=== PATIENT | male | born 1975 | race African-American/Black ===

== ENCOUNTER 2017-02-01 05:09 | Emergency (ER) | payer BC, OTHER ==
[2017-02-01] MEDS ORDERED: ONDANSETRON HCL/PF 2 MG/ML VIAL IV ONE (05:29)
[2017-02-01] MEDS ORDERED: NORMAL SALINE 1,000 ML IV ONE (05:29)
[2017-02-01] MEDS ORDERED: ONDANSETRON HCL/PF 2 MG/ML VIAL ONE (05:31)
--- NOTE | 2017-02-01 05:33 | ERNOTE ---
<FortunatolindaJeremi - Last Filed: 02/01/17 07:58> Medical Problem HPI - General Chief Complaint: Flu Symptoms Time Seen by Provider: 02/01/17 05:23 Source: patient Exam Limitations: no limitations - Immun/Allergies/Home Medications Immunizations: IMMUNIZATION HX Immunizations Up to Date No History of Influenza Vaccine No Hx Pneumococcal Vaccination No Allergies/Adverse Reactions: Allergies No Known Allergies Allergy (Verified 02/01/17 06:01) Home Medications: HOME MEDICATIONS Azithromycin [Zithromax] 250 mg PO DAILY #6 tablet 02/01/17 [Last Taken Unknown] Benzonatate [Tessalon Perle] 100 mg PO TID #20 capsule 02/01/17 [Last Taken Unknown] - History of Present History Narrative: Pt had N/V onset 3 days ago and has progressed to upper respiratory congestion and a slight cough. Timing: getting worse Severity: moderate Modifying Factors - (Improves): Present: rest Modifying Factors - (Worsens): Present: eating Review of Systems - Review of Systems Constitutional: Present: fever, chills, diaphoresis EYE: Present: no symptoms reported ENT: Present: nose congestion, nasal drainage Respiratory: Present: cough - minimal Cardiology: Present: no symptoms reported Gastrointestinal/Abdominal: Present: nausea, vomiting, abdominal pain Genitourinary: Present: no symptoms reported Musculoskeletal: Present: no symptoms reported Skin: Present: no symptoms reported Neurological: Present: weakness Endocrine: Present: no symptoms reported Hematologic/Lymphatic: Present: no symptoms reported Psych: Present: no symptoms reported - Patient's Past Medical History Patient History - Medical: No pertinent hx Patient History - Cardiac/Respiratory: No pertinent hx Patient History - Surgical Procedures: Other Patient History - Other: None - Social History Living Situations: significant other Abuse History: No History of abuse Psych History: No pertinent hx Smoking Status: Heavy tobacco smoker Have you smoked in the past 12 months: Yes Do you dip or chew tobacco: No Patient requests Smoking Cessation Consult: No Initiate information on Smoking Cessation: No Alcohol Use: none Drug Use: none - Immunizations Immunizations Up to Date: No Hx Pneumococcal Vaccination: No History of Influenza Vaccine: No Physical Exam - Physical Exam General Appearance: Present: wd/wn, alert, no apparent distress Head Exam: Present: normal inspection, no evidence of injury Ears, Nose, Throat: Present: nasal congestion Neck: Present: normal inspection, nontender Respiratory: Present: no respiratory distress, normal breath sounds, no accessory muscle use, lungs clear Cardiovascular/Chest: Present: regular rate, rhythm, no murmur, normal peripheral pulses Gastrointestinal/Abdominal: Present: normal bowel sounds, tenderness - diffuse, abnormal bowel sounds - hyperactive Back Exam: Present: normal inspection, no vertebral tenderness Extremity Exam: Present: normal inspection, normal range of motion Neurological Exam: Present: alert, oriented, normal mood/affect Skin Exam: Present: normal color, warm/dry Lymphatic Exam: Present: no adenopathy ED Progress - Results and Orders Patient's Lab Results:: I have reviewed the patient's lab results. Results and Orders: Laboratory Tests 02/01/17 02/01/17 05:40 05:40 WBC 11.0 H Hgb 18.9 H Hct 53.4 H Plt Count 279 Sodium 138 Potassium 3.0 L Chloride 101 Carbon Dioxide 28.9 BUN 5 L Creatinine 0.91 Random Glucose 92 Calcium 9.0 Total Bilirubin 0.9 AST 23 ALT 46 Alkaline Phosphatase 112 Total Protein 8.0 Albumin 3.9 Amylase 68 Lipase 78 - Vital Signs Patient's Vital Signs:: I have reviewed the patient's vital signs. Vital Signs: Vital Signs 02/01/17 05:14 Temperature 36.8 C Pulse Rate 110 H Respiratory 16 Rate Blood Pressure 162/110 O2 Sat by Pulse 99 Oximetry - X-Ray X-Ray #1 X-Ray: abdomen Interpretation: Interp. by me X-ray Comments: mildly dilated loops of small bowel mid abdomen, appears to stop LUQ X-Ray #2 X-Ray: chest Interpretation: Interp. by me X-ray Comments: no infiltrate or effusion - Progress/Reassessment Chief Complaint: Flu Symptoms Progress:: Improved Progress Note-Subjective: 02/01/17 06:40 discussed lab and x-ray results with patient. Recommended CT, pt expressed agreement. - Transfer of Care Physician Sign Out: Jeremi Lockhart Receiving Physician: Lincoln Fernandes Pending Results: CT/MRI results Expected Disposition: Discharge Departure Clinical Impression: Abdominal pain Qualifiers: Abdominal location: left upper quadrant Qualified Code(s): R10.12 - Left upper quadrant pain Diverticulosis Qualifiers: Diverticulosis site: diverticulosis of large intestine Diverticulosis bleeding : diverticulosis without bleeding Qualified Code(s): K57.30 - Diverticulosis of large intestine without perforation or abscess without bleeding Upper respiratory infection Qualifiers: URI type: unspecified URI Qualified Code(s): J06.9 - Acute upper respiratory infection, unspecified - Departure Disposition: Home self-care Condition: Good Instructions: Diverticulosis, Upper Respiratory Infection, Adult, [id number] Prescriptions: Azithromycin [Zithromax] 250 mg PO DAILY #6 tablet Benzonatate [Tessalon Perle] 100 mg PO TID #20 capsule <Lincoln Fernandes - Last Filed: 02/01/17 09:46> Medical Problem HPI - Immun/Allergies/Home Medications Immunizations: IMMUNIZATION HX Immunizations Up to Date No History of Influenza Vaccine No Hx Pneumococcal Vaccination No ED Progress - Vital Signs Vital Signs: Vital Signs 02/01/17 02/01/17 02/01/17 05:14 06:31 06:52 Temperature 36.8 C 36.4 C L Pulse Rate 110 H 96 90 Respiratory 16 16 14 Rate Blood Pressure 162/110 158/97 155/110 O2 Sat by Pulse 99 99 97 Oximetry 02/01/17 02/01/17 07:52 08:51 Temperature Pulse Rate 88 100 Respiratory 14 12 Rate Blood Pressure 154/108 149/103 O2 Sat by Pulse 97 96 Oximetry - X-Ray X-Ray #2 X-ray Comments: CT the abdomen and pelvis was reviewed by me Plan - Plan Plan: Given that the patient has a fairly significant cough as well as diverticulosis I will start the patient on antibiotics and cough medicine and he will follow- up with his family physician as needed.
[2017-02-01 05:48] LABS: Hematocrit 53.4 % (42.0-52.0); Hemoglobin 18.9 gm/dL (13.5-18.0); Mean Cell Volume 87.8 fl (78-100); Mean Corpuscular Hemoglobin 31.1 pg (27-31); Mean Corpuscular Hgb Conc 35.4 g/dl (32-36); Neutrophil # 6.8 K/mm3 (1.3-6.0); Platelet Count 279 K/mm3 (150-450); Red Blood Count 6.08 M/mm3 (4.7-6.0); Red Cell Distribution Width 14.6 % (11.5-14.0)
[2017-02-01 06:00] LABS: Albumin * 3.9 gm/dl (3.4-5.0); Anion Gap 11.1 mmol/L (6.8-13.8); BUN/Creatinine Ratio 5.5 (9.0-21.6); Bilirubin, Total 0.9 mg/dL (0.0-1.1); Ca. Corrected For Albumin 8.8 mg/dL (8.4-10.2); Carbon Dioxide 28.9 mmol/L (24-32.6)
[2017-02-01] MEDS ORDERED: DIATRIZOATE MEGLUMINE, SODIUM 30 ML BTL ONE (06:42)
[2017-02-01] MEDS ORDERED: DIATRIZOATE MEGLUMINE, SODIUM 30 ML BTL PO ONE (06:43)
[2017-02-01 09:40] VITALS: BP 137/101
== END 2017-02-01 09:54 | disposition home or self-care (01) ==
LOC: ER 05:09
DX: J06.9 Acute upper respiratory infection, unspecified (principal); K57.30 Diverticulosis of large intestine without perforation or abscess without bleeding; R10.12 Left upper quadrant pain; F17.200 Nicotine dependence, unspecified, uncomplicated
CPT/HCPCS: 36415; 71020; 74020; 74177; 80053; 82150; 83690; 85025; 87400; 96374; 99284; J2405

== ENCOUNTER 2019-08-23 16:21 | Observation (INO) ==
[2019-08-23] MEDS ORDERED: ONDANSETRON HCL/PF 2 MG/ML VIAL IV ONE (16:35)
--- NOTE | 2019-08-23 16:43 | ERNOTE ---
Medical Problem HPI - Narrative Date of Service: 08/23/19 - General Chief Complaint: Nausea/Vomiting Time Seen by Provider: 08/23/19 16:30 Source: patient Exam Limitations: no limitations - Immun/Allergies/Home Medications Immunizations: IMMUNIZATION HX Immunizations Up to Date No History of Influenza Vaccine Yes Hx Pneumococcal Vaccination No Allergies/Adverse Reactions: Allergies No Known Allergies Allergy (Verified 05/05/19 12:43) Home Medications: HOME MEDICATIONS Cyclobenzaprine HCl [Flexeril] 10 mg PO TID PRN 05/05/19 [Last Taken Unknown] Gabapentin [Neurontin] 300 mg PO TID 05/05/19 [Last Taken Unknown] Gabapentin [Neurontin] 600 mg PO TID 05/05/19 [Last Taken Unknown] Losartan Potassium 20 mg PO DAILY 05/05/19 [Last Taken Unknown] Zolpidem Tartrate [Ambien] 5 mg PO HS 05/05/19 [Last Taken Unknown] oxyCODONE HCL/ACETAMINOPHEN [Percocet 5 MG/325 MG] 1 tab PO Q4H PRN 05/05/19 [Last Taken Unknown] - Pain Score Pain Score #1 Pain Score: 7 - History of Present History Narrative: The patient is a 44 year old male who presents for nausea and vomiting which has been present since this am. There are associated symptoms of generalized body aches, shortness of breath, intermittent chest pain and diarrhea. The patient reports generalized body aches, 7/10. There are no alleviating factors. There are aggravating factors of activity and oral intake. Previous treatments have included: none. The past medical history includes: HTN. The social history is positive for current tobacco use. The patient has had no known ill contacts. Patient states that he has been working in the heat for the past several days. Patient states he ate dinner last evening and then began to develop nausea and general feeling unwell. Patient states he awoke today still feeling unwell with nausea, attempted to eat and consume water and then began vomiting. Patient states he has been vomiting all throughout the day unable to keep down fluids. Patient also developed diarrhea today and has bout of diffuse anterior chest pain with shortness of breath. Patient states he has had minimal urine output today. 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 Review of Systems - Review of Systems Constitutional: Present: diaphoresis, fatigue. Absent: fever, chills EYE: Present: no symptoms reported. Absent: vision changes ENT: Present: no symptoms reported. Absent: ear pain, nasal drainage, sore throat Respiratory: Present: shortness of breath. Absent: cough Cardiology: Present: chest pain Gastrointestinal/Abdominal: Present: nausea, vomiting, diarrhea, abdominal pain, eating less, drinking less Genitourinary: Present: decreased urinary output. Absent: dysuria Musculoskeletal: Present: other - generalized body aches Skin: Present: no symptoms reported. Absent: rash Neurological: Present: dizziness/light-headedness - near syncope, weakness All Other Systems: All systems neg except as marked Medical History (Last Reviewed 08/23/19 @ 16:37 by ERASMO Wilcox) History of high blood pressure Surgical History: Surgical History (Last Reviewed 08/23/19 @ 16:37 by ERASMO Wilcox) History of ankle surgery History of carpal tunnel surgery Hx of cholecystectomy Social History: (Last Reviewed 08/23/19 @ 16:37 by ERASMO Wilcox) Tobacco: Smoking Status: Current every day smoker tobacco type: cigarettes Smoking cigarettes per day: 10 Alcohol: alcohol intake: current alcohol intake frequency: holiday/special occasion Substance Use: substance use type: marijuana Physical Exam - Physical Exam General Appearance: Present: wd/wn, alert, moderate distress Head Exam: Present: normal inspection, no evidence of injury Eye Exam: Normal inspection: bilateral, PERRL: bilateral, EOMI: bilateral Neck: Present: normal inspection Respiratory: Present: no respiratory distress, normal breath sounds, no accessory muscle use, lungs clear Cardiovascular/Chest: Present: no murmur, tachycardia Gastrointestinal/Abdominal: Present: nondistended, soft, no organomegaly, tenderness - diffuse, R side of abdomen > left side, abnormal bowel sounds - hyperactive. Absent: guarding, rebound, mass Extremity Exam: Present: no edema Neurological Exam: Present: alert, oriented, normal mood/affect, no motor/sensory deficits Skin Exam: Present: normal color, diaphoresis Progress - Date and Time Seen: Date and Time: 08/23/19 17:38 Discussed results of testing with patient. Patient states nausea improving and beginning to take ice chips. HR improved to 110. Due to hyponatremia and Crea 2.7, Hgb 18 and WBC 16.4 which feel is associated with dehydration. Discussed case with and will admit for IV hydration, tele monitoring and repeat lab testing in the am to ensure resolution. Patient verbalized understanding of plan of care. - Results and Orders Patient's Lab Results:: I have reviewed the patient's lab results. - Vital Signs Patient's Vital Signs:: I have reviewed the patient's vital signs. Vital Signs: Vital Signs 08/23/19 16:25 Temperature 37 C Pulse Rate 126 H Respiratory Rate 14 Blood Pressure 144/84 H O2 Sat by Pulse Oximetry 99 - EKG EKG #1 EKG: NSR - tachycardia 122, nonspecific ST T wave changes EKG read: Reviewed by me - Reviewed with . - X-Ray X-Ray #1 X-Ray: chest Interpretation: Reviewed by me X-ray Comments: No acute cardiopulmonary abnormality. - Progress/Reassessment Chief Complaint: Nausea/Vomiting Departure Clinical Impression: Dehydration, Hyponatremia - Departure Disposition: Still a patient Condition: Stable
[2019-08-23] MEDS ORDERED: NORMAL SALINE 1,000 ML IV PRN ×3 (16:44→21:38)
[2019-08-23 16:56] LABS: Hemoglobin 18.3 gm/dL (13.5-18.0); Mean Corpuscular Hemoglobin 30.5 pg (27-31); Mean Corpuscular Hgb Conc 33.9 g/dl (32-36); Mean Platelet Volume 8.4 fl (8-11.3); Platelet Count 333 K/mm3 (150-450); Red Cell Distribution Width 14.5 % (11.5-14.0); White Blood Count 16.4 K/mm3 (4.0-10.5)
[2019-08-23 17:15] LABS: ALT 34 U/L (19-67); AST 27 U/L (0-48); Albumin * 4.3 gm/dl (3.4-5.0); Alkaline Phosphatase * 111 U/L (50-170); Amylase * 82 U/L (25-115); Anion Gap 13.2 mmol/L (6.8-13.8); BUN/Creatinine Ratio 7.4 (9.0-21.6); Bilirubin, Total 0.6 mg/dL (0.0-1.1); Blood Urea Nitrogen 20 mg/dL (6-23); Ca. Corrected For Albumin 9.2 mg/dL (8.4-10.2); Calcium * 9.8 mg/dL (7.9-10.9); Carbon Dioxide 27.1 mmol/L (24-32.6); Chloride 89 mmol/L (97-106); Glucose * 125 mg/dL (70-110); Lipase 29 U/L (73-393); Magnesium 1.9 mg/dL (1.2-2.8); Neutrophil # 13.5 K/mm3 (1.3-6.0); Neutrophil % 82.1 % (42-75.0); Potassium 4.3 mmol/L (3.4-4.6); Sodium 125 mmol/L (132-142); Total Protein 8.5 gm/dL (6.2-8.2); Troponin I Less than 0.017 ng/mL (0.00-0.10)
[2019-08-23 17:19] LABS: INR 1.01 INR (0.92-1.08); Partial Thrombolplastin Time 24.7 Seconds (24-32)
[2019-08-23] MEDS ORDERED: NORMAL SALINE 1,000 ML IV ONE (17:56)
[2019-08-23] MEDS ORDERED: ONDANSETRON HCL/PF 2 MG/ML VIAL IV PRN (17:56)
[2019-08-23] MEDS ORDERED: CYCLOBENZAPRINE HCL 10 MG TABLET PO PRN (19:01)
--- NOTE | 2019-08-23 19:17 | HP ---
Chief Complaint - Chief Complaint Date of Service: 08/23/19 Time of Service: 18:45 Chief Complaint: Weakness, lightheadedness, nausea vomiting and diarrhea, anuria History of Present Illness: Mr. Lao is a 44-year-old black male who is admitted through the ER following episode of heat exhaustion. 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 He is also has some nausea vomiting and diarrhea. He reports that he has not urinated all day long. He was given 2 L of normal saline IV bolus in ER and is feeling much better now. The lightheadedness is resolved and his nausea is much improved. I will let him have sips of clear liquids to take medicines tonight but I will wait until morning to give him a full clear liquid tray. I will progress his diet as tolerated. Anticipate discharge tomorrow afternoon. I recheck lab tomorrow morning. Also repeat his EKG is over some minor irregularities in the emergency room. Medical History (Last Reviewed 08/23/19 @ 18:58 by Pedrito Mock RN) History of high blood pressure Surgical History: Surgical History (Last Updated 08/23/19 @ 18:59 by Pedrito Mock RN) History of ankle surgery History of carpal tunnel surgery Hx of cholecystectomy Previous back surgery Family History: Family History (Last Updated 08/23/19 @ 22:40 by Pedrito Mock RN) Father Alcoholic Grandfather Myocardial infarction Grandmother Uncle Diabetes Social History: (Last Reviewed 08/23/19 @ 18:59 by Pedrito Mock RN) Tobacco: Smoking Status: Current every day smoker tobacco type: cigarettes Smoking cigarettes per day: 10 Alcohol: alcohol intake: current alcohol intake frequency: holiday/special occasion Substance Use: substance use type: marijuana Review Of Systems (GEN) - Review of Systems Generalized/Overall Review: Present: Weakness, Fatigue EENTM: Present: No Symptoms Reported Respiratory: Present: No Symptoms Reported Cardiac: Present: No Symptoms Reported Abdominal: Present: Nausea, Vomiting, Diarrhea Genitourinary: Present: Anuria Musculoskeletal: Present: Joint Pain - In both feet, Back Pain - Low back pain Neurological: Present: Headache, Weakness Skin: Present: Other - Diminished skin turgor in the emergency room that has improved with rehydration Endocrine: Present: No Symptoms Reported Immunizations: IMMUNIZATION HX Immunizations Up to Date No History of Influenza Vaccine Yes Hx Pneumococcal Vaccination No Allergies/Adverse Reactions: Allergies Allergy/AdvReac Type Severity Reaction Status Date / Time No Known Allergies Allergy Verified 08/23/19 18:59 Home Medications: HOME MEDICATIONS Cyclobenzaprine HCl [Flexeril] 10 mg PO TID PRN 05/05/19 [Last Taken Unknown] Gabapentin [Neurontin] 300 mg PO TID 05/05/19 [Last Taken Unknown] Gabapentin [Neurontin] 600 mg PO TID 05/05/19 [Last Taken Unknown] Zolpidem Tartrate [Ambien] 10 mg PO HS 05/05/19 [Last Taken Unknown] oxyCODONE HCL/ACETAMINOPHEN [Percocet 5 MG/325 MG] 2 tab PO Q6H PRN 05/05/19 [Last Taken Unknown] Doxepin HCl [Sinequan] 10 mg PO HS 08/23/19 [Last Taken Unknown] Lisinopril/Hydrochlorothiazide [Lisinopril-Hctz 20-12.5 mg Tab] 20 mg PO DAILY 08/23/19 [Last Taken Unknown] Pantoprazole Sodium 40 mg PO DAILY 08/23/19 [Last Taken Unknown] Exam - Exam Vital Signs: Vital Signs - Last Taken Temp 36.8 C 08/23/19 18:33 Pulse 116 H 08/23/19 18:33 Resp 10 L 08/23/19 18:33 BP 150/90 H 08/23/19 18:33 Pulse Ox 99 08/23/19 18:33 Constitutional: Present: Alert, Oriented x3, Cooperative, Well developed, Well nourished, Mild distress ENT Exam: Present: normal ENT inspection, hearing grossly normal, pharynx normal, TMs normal Eye Exam: bilateral eye: normal inspection, PERRL, EOMI Neck: Present: non-tender, full range of motion, supple, normal inspection Back Exam: Present: normal inspection, no CVA tenderness, no vertebral tenderness Breasts: Present: Exam deferred Respiratory: Present: chest non-tender, lungs clear, normal breath sounds, no respiratory distress, no accessory muscle use Cardiovascular/Chest: Present: normal peripheral pulses, regular rate, rhythm, no chest tenderness, no edema, tachycardia Peripheral Pulses: carotid (R): 2+, carotid (L): 2+, radial (R): 2+, radial (L): 2+ Abdomen: Present: soft, nondistended, no rebound tenderness, no hepatospenomegaly, no masses, tender, hypoactive /Rectal: Present: Exam deferred Extremity: Present: normal range of motion, non-tender, normal inspection, no pedal edema, no calf tenderness, normal capillary refill Skin Exam: Present: normal color, warm/dry, no cyanosis Lymphatic: Present: no adenopathy Neurologic: Present: custom harvester II-XII nml as tested, normal cerebellar test, no motor/sensory deficits, alert, normal mood/affect, oriented x 3 Appearance: Present: appropriate appearance, appropriate insight, neat, no memory impairment Eye contact: Present: cooperative, good eye contact, normal speech Thoughts: Present: normal thought pattern, no apparent hallucination Diagnostic Studies: Abnormal Lab Results 08/23/19 08/23/19 Range/Units 16:35 16:35 WBC 16.4 H (4.0-10.5) K/mm3 Hgb 18.3 H (13.5-18.0) gm/dL Hct 54.0 H (42.0-52.0) % RDW 14.5 H (11.5-14.0) % Immature Gran % (Auto) 1.00 H (0.001-0.429) % Immature Gran # (Auto) 0.16 H (0.000-0.0310) K/mm3 Neutrophils % 82.1 H (42-75.0) % Lymphocytes % 11.7 L (20-51) % Neutrophils # 13.5 H (1.3-6.0) K/mm3 Sodium 125 L (132-142) mmol/L Plasma Sodium 125 L (130-142) mmol/L Chloride 89 L (97-106) mmol/L Creatinine 2.71 H (0.4-1.4) mg/dL Est GFR (Non-Af Amer) 33 L D (60-130) mL/min BUN/Creatinine Ratio 7.4 L (9.0-21.6) Random Glucose 125 H (70-110) mg/dL Total Protein 8.5 H (6.2-8.2) gm/dL Lipase 29 L (73-393) U/L Laboratory Results WBC 16.4 K/mm3 (4.0-10.5) H 08/23/19 16:35 RBC 6.00 M/mm3 (4.7-6.0) 08/23/19 16:35 Hgb 18.3 gm/dL (13.5-18.0) H 08/23/19 16:35 Hct 54.0 % (42.0-52.0) H 08/23/19 16:35 MCV 90.0 fl (78-100) 08/23/19 16:35 MCH 30.5 pg (27-31) 08/23/19 16:35 MCHC 33.9 g/dl (32-36) 08/23/19 16:35 RDW 14.5 % (11.5-14.0) H 08/23/19 16:35 Plt Count 333 K/mm3 (150-450) 08/23/19 16:35 MPV 8.4 fl (8-11.3) 08/23/19 16:35 Immature Gran % (Auto) 1.00 % (0.001-0.429) H 08/23/19 16:35 Immature Gran # (Auto) 0.16 K/mm3 (0.000-0.0310) H 08/23/19 16:35 Neutrophils % 82.1 % (42-75.0) H 08/23/19 16:35 Neutrophils % (Manual) Cancelled 08/23/19 16:35 Band Neuts % (Manual) Cancelled 08/23/19 16:35 Lymphocytes % 11.7 % (20-51) L 08/23/19 16:35 Lymphocytes % (Manual) Cancelled 08/23/19 16:35 Monocytes % 4.8 % (0.0-9) 08/23/19 16:35 Monocytes % (Manual) Cancelled 08/23/19 16:35 Eosinophils % 0.2 % (0.0-3.0) 08/23/19 16:35 Eosinophils % (Manual) Cancelled 08/23/19 16:35 Basophils % 0.2 % (0.0-1.0) 08/23/19 16:35 Basophils % (Manual) Cancelled 08/23/19 16:35 Immature Granulocytes Cancelled 08/23/19 16:35 Neutrophils # 13.5 K/mm3 (1.3-6.0) H 08/23/19 16:35 Neutrophils # (Manual) Cancelled 08/23/19 16:35 Lymphocytes # 1.91 k/mm3 (1.5-3.5) 08/23/19 16:35 Lymphocytes # (Manual) Cancelled 08/23/19 16:35 Monocytes # 0.8 k/mm3 (0.0-1.0) 08/23/19 16:35 Monocytes # (Manual) Cancelled 08/23/19 16:35 Eosinophils # 0.0 k/mm3 (0.0-0.7) 08/23/19 16:35 Eosinophils # (Manual) Cancelled 08/23/19 16:35 Basophils # (Manual) Cancelled 08/23/19 16:35 Absolute Basophils 0.0 k/mm3 (0.0-0.1) 08/23/19 16:35 Nucleated RBCs Cancelled 08/23/19 16:35 Differential Comment Cancelled 08/23/19 16:35 Hypersegmented Polys Cancelled 08/23/19 16:35 Atypic/Reactive Lymphs Cancelled 08/23/19 16:35 Smudge Cells Cancelled 08/23/19 16:35 Other Cell Type Cancelled 08/23/19 16:35 Toxic Granulation Cancelled 08/23/19 16:35 Toxic Vacuolation Cancelled 08/23/19 16:35 Dohle Bodies Cancelled 08/23/19 16:35 Platelet Estimate Cancelled 08/23/19 16:35 Giant Platelets Cancelled 08/23/19 16:35 RBC Morphology Cancelled 08/23/19 16:35 Polychromasia Cancelled 08/23/19 16:35 Hypochromasia Cancelled 08/23/19 16:35 Poikilocytosis Cancelled 08/23/19 16:35 Basophilic Stippling Cancelled 08/23/19 16:35 Anisocytosis Cancelled 08/23/19 16:35 Microcytosis Cancelled 08/23/19 16:35 Macrocytosis Cancelled 08/23/19 16:35 Spherocytes Cancelled 08/23/19 16:35 Sickle Cells Cancelled 08/23/19 16:35 Target Cells Cancelled 08/23/19 16:35 Tear Drop Cells Cancelled 08/23/19 16:35 Ovalocytes Cancelled 08/23/19 16:35 Stomatocytes Cancelled 08/23/19 16:35 Mcelroy-Toccopola Bodies Cancelled 08/23/19 16:35 Kemar Cells Cancelled 08/23/19 16:35 Elliptocytes Cancelled 08/23/19 16:35 Rouleaux Cancelled 08/23/19 16:35 Schistocytes Cancelled 08/23/19 16:35 Morphology Comment Cancelled 08/23/19 16:35 PT 10.0 Seconds (9.1-10.7) 08/23/19 16:35 INR (Anticoag Therapy) 1.01 INR (0.92-1.08) 08/23/19 16:35 PTT (Fleming) 24.7 Seconds (24-32) 08/23/19 16:35 Sodium 125 mmol/L (132-142) L 08/23/19 16:35 Plasma Sodium 125 mmol/L (130-142) L 08/23/19 16:35 Potassium 4.3 mmol/L (3.4-4.6) 08/23/19 16:35 Chloride 89 mmol/L (97-106) L 08/23/19 16:35 Carbon Dioxide 27.1 mmol/L (24-32.6) 08/23/19 16:35 Anion Gap 13.2 mmol/L (6.8-13.8) 08/23/19 16:35 BUN 20 mg/dL (6-23) 08/23/19 16:35 Creatinine 2.71 mg/dL (0.4-1.4) H 08/23/19 16:35 Est GFR (Non-Af Amer) 33 mL/min (60-130) L D 08/23/19 16:35 BUN/Creatinine Ratio 7.4 (9.0-21.6) L 08/23/19 16:35 Random Glucose 125 mg/dL (70-110) H 08/23/19 16:35 Calcium 9.8 mg/dL (7.9-10.9) 08/23/19 16:35 Calcium Adj for Albumin 9.2 mg/dL (8.4-10.2) 08/23/19 16:35 Magnesium 1.9 mg/dL (1.2-2.8) 08/23/19 16:35 Total Bilirubin 0.6 mg/dL (0.0-1.1) 08/23/19 16:35 AST 27 U/L (0-48) 08/23/19 16:35 ALT 34 U/L (19-67) 08/23/19 16:35 Alkaline Phosphatase 111 U/L (50-170) 08/23/19 16:35 Troponin I Less than 0.017 ng/mL (0.00-0.10) 08/23/19 16:35 Total Protein 8.5 gm/dL (6.2-8.2) H 08/23/19 16:35 Albumin 4.3 gm/dl (3.4-5.0) 08/23/19 16:35 Amylase 82 U/L (25-115) 08/23/19 16:35 Lipase 29 U/L (73-393) L 08/23/19 16:35 Assessment/Plan - Narrative Narrative: Continue rehydration through the night. Keep n.p.o. except for sips to take meds with tonight Start amlodipine 10 mg p.o. daily now Resume his usual home meds Progress diet starting tomorrow morning Recheck morning labs and repeat EKG Anticipate discharge tomorrow afternoon - Assessment/Plan (1) Acute kidney injury Problem: Acute (2) Anuria Problem: Acute (3) Traumatic anuria, sequela Problem: Acute (4) Abdominal pain Problem: Acute (5) Dehydration Problem: Acute (6) Hyponatremia Problem: Acute (7) Heat prostration Problem: Acute Qualifiers: Encounter type: subsequent encounter Qualified Code(s): T67.5XXD - Heat exhaustion, unspecified, subsequent encounter
[2019-08-23] MEDS ORDERED: amLODIPine BESYLATE 10 MG TABLET PO SCH (20:15)
[2019-08-23] MEDS: oxyCODONE HCL/ACETAMINOPHEN 1 TAB TABLET PO PRN (20:51)
[2019-08-23] MEDS ORDERED: GABAPENTIN 300 MG CAPSULE PO SCH (21:15)
[2019-08-23] MEDS ORDERED: NICOTINE 21 MG PATC TD SCH (21:15)
[2019-08-23] MEDS ORDERED: GABAPENTIN 600 MG TABLET PO SCH ×2 (21:15→22:45)
[2019-08-23 21:18] LABS: BUN/Creatinine Ratio 9.5 (9.0-21.6); Carbon Dioxide 29.9 mmol/L (24-32.6); Estimated Creat Clear 60.4; Potassium 3.9 mmol/L (3.4-4.6)
[2019-08-23] MEDS ORDERED: MORPHINE SULFATE 10 MG/ML SYRG IV PRN (23:00)
[2019-08-23] MEDS ORDERED: ZOLPIDEM TARTRATE 5 MG TABLET PO SCH (23:30)
[2019-08-23] MEDS ORDERED: DOXEPIN HCL 10 MG CAPSULE PO SCH (23:30)
[2019-08-24 01:44] LABS: Urine Bilirubin Negative (NEGATIVE); Urine Blood 25 /ul (NEGATIVE); Urine Ketone Negative (NEGATIVE); Urine Nitrite Negative (NEGATIVE); Urine Protein Negative (NEGATIVE); Urine Specific Gravity <=1.005 SP.GR. (1.005-1.030); Urine Urobilinogen Normal (NORMAL)
[2019-08-24 01:58] LABS: Urine Appearance Clear (CLEAR); Urine Bacteria None Seen; Urine Color Yellow; Urine RBC None Seen /hpf (0-5); Urine WBC None Seen /hpf (0-5)
[2019-08-24 02:38] LABS: Cocaine Ur Negative (NEGATIVE); Urine Barbiturate Negative (NEGATIVE); Urine Opiates Negative (NEGATIVE); Urine PCP Negative (NEGATIVE); Urine THC Negative (NEGATIVE)
[2019-08-24 02:42] LABS: Urine Benzodiazepines Positive (NEGATIVE)
[2019-08-24] MEDS: oxyCODONE HCL/ACETAMINOPHEN 1 TAB TABLET PO PRN (02:51)
[2019-08-24 06:30] VITALS: BP 113/47
[2019-08-24 06:39] LABS: Hematocrit 49.9 % (42.0-52.0); Hemoglobin 16.8 gm/dL (13.5-18.0); Mean Cell Volume 91.2 fl (78-100); Mean Corpuscular Hemoglobin 30.7 pg (27-31); Mean Corpuscular Hgb Conc 33.7 g/dl (32-36); Mean Platelet Volume 8.4 fl (8-11.3); Neutrophil # 5.2 K/mm3 (1.3-6.0); Neutrophil % 54.3 % (42-75.0); Platelet Count 285 K/mm3 (150-450); Red Blood Count 5.47 M/mm3 (4.7-6.0); Red Cell Distribution Width 14.6 % (11.5-14.0); White Blood Count 9.6 K/mm3 (4.0-10.5)
[2019-08-24 06:52] LABS: Albumin * 3.5 gm/dl (3.4-5.0); Anion Gap 6.8 mmol/L (6.8-13.8); BUN/Creatinine Ratio 12.5 (9.0-21.6); Ca. Corrected For Albumin 8.9 mg/dL (8.4-10.2); Calcium * 8.8 mg/dL (7.9-10.9); Carbon Dioxide 32.4 mmol/L (24-32.6); Potassium 4.2 mmol/L (3.4-4.6); Total Protein 7.2 gm/dL (6.2-8.2)
[2019-08-24] MEDS ORDERED: LOSARTAN POTASSIUM 20 MG PO SCH (09:00)
[2019-08-24] MEDS ORDERED: PANTOPRAZOLE SODIUM 40 MG TABLET.EC PO SCH (09:00)
--- NOTE | 2019-08-24 14:17 | DS ---
(1) Abdominal pain Problem: Resolved Qualifiers: Abdominal location: epigastric Qualified Code(s): R10.13 - Epigastric pain (2) Acute kidney injury Problem: Resolved (3) Anuria Problem: Resolved (4) Dehydration Problem: Resolved (5) Heat prostration Problem: Resolved Qualifiers: Encounter type: subsequent encounter Qualified Code(s): T67.5XXD - Heat exhaustion, unspecified, subsequent encounter (6) Hyponatremia Problem: Resolved Date of Discharge:: 08/24/19 Hospital Course: Patient wanders a 44-year-old male who was admitted through ER with dehydration and hyponatremia. He was feeling much better after being rehydrated became fairly agitated claiming he was having 10/10 pain diffusely and was wanting more pain medication. We provided him pain medication and he continued to complain. His sodium last night was 129 and is 132 today. About 6 AM he became agitated and decided he was going to leave AGAINST MEDICAL ADVICE and did just that. I did not get to see him this morning. I would have discharged him routinely had he not been so inpatient. The morning lab is all back to normal and clinically he was much improved. He is a smoker. I did provide a nicotine patch for him to wear but I suspect that with part of the reason for leaving so quickly. Procedures Performed: none Results and Findings: Lab Pending Results 08/23/19 16:35: WBC 16.4 H, RBC 6.00, Hgb 18.3 H, Hct 54.0 H, MCV 90.0, MCH 30.5, MCHC 33.9, RDW 14.5 H, Plt Count 333, MPV 8.4, Immature Gran % (Auto) 1.00 H, Immature Gran # (Auto) 0.16 H, Neutrophils % 82.1 H, Neutrophils % (Manual) Cancelled, Band Neuts % (Manual) Cancelled, Lymphocytes % 11.7 L, Lymphocytes % (Manual) Cancelled, Monocytes % 4.8, Monocytes % (Manual) Cancelled, Eosinophils % 0.2, Eosinophils % (Manual) Cancelled, Basophils % 0.2, Basophils % (Manual) Cancelled, Immature Granulocytes Cancelled, Neutrophils # 13.5 H, Neutrophils # (Manual) Cancelled, Lymphocytes # 1.91, Lymphocytes # (Manual) Cancelled, Monocytes # 0.8, Monocytes # (Manual) Cancelled, Eosinophils # 0.0, Eosinophils # (Manual) Cancelled, Basophils # (Manual) Cancelled, Absolute Basophils 0.0, Nucleated RBCs Cancelled, Differential Comment Cancelled, Hypersegmented Polys Cancelled, Atypic/Reactive Lymphs Cancelled, Smudge Cells Cancelled, Other Cell Type Cancelled, Toxic Granulation Cancelled, Toxic Vacuolation Cancelled, Dohle Bodies Cancelled, Platelet Estimate Cancelled, Giant Platelets Cancelled, RBC Morphology Cancelled, Polychromasia Cancelled, Hypochromasia Cancelled, Poikilocytosis Cancelled, Basophilic Stippling Cancelled, Anisocytosis Cancelled, Microcytosis Cancelled, Macrocytosis Cancelled, Spherocytes Cancelled, Sickle Cells Cancelled, Target Cells Cancelled, Tear Drop Cells Cancelled, Ovalocytes Cancelled, Stomatocytes Cancelled, Mcelroy-Mcmechen Bodies Cancelled, Kemar Cells Cancelled, Elliptocytes Cancelled, Rouleaux Cancelled, Sc histocytes Cancelled, Morphology Comment Cancelled 08/23/19 16:35: PT 10.0, INR (Anticoag Therapy) 1.01, PTT (Bob) 24.7 08/23/19 16:35: Sodium 125 L, Plasma Sodium 125 L, Potassium 4.3, Chloride 89 L, Carbon Dioxide 27.1, Anion Gap 13.2, BUN 20, Creatinine 2.71 H, Est GFR (Non-Af Amer) 33 L D, BUN/Creatinine Ratio 7.4 L, Random Glucose 125 H, Calcium 9.8, Calcium Adj for Albumin 9.2, Magnesium 1.9, Total Bilirubin 0.6, AST 27, ALT 34, Alkaline Phosphatase 111, Troponin I Less than 0.017, Total Protein 8.5 H, Albumin 4.3, Amylase 82, Lipase 29 L 08/23/19 21:05: Sodium 129 L, Plasma Sodium 129 L, Potassium 3.9, Chloride 94 L, Carbon Dioxide 29.9, Anion Gap 9.0, BUN 16, Creatinine 1.68 H D, Est GFR (Non-Af Amer) 58 L D, BUN/Creatinine Ratio 9.5, Random Glucose 104, Calcium 9.0 08/24/19 01:30: Urine Color Yellow, Urine Appearance Clear, Urine pH 7.0, Ur Specific Warren <=1.005, Urine Protein Negative, Urine Glucose (UA) Negative, Urine Ketones Negative, Urine Blood 25 H, Urine Nitrate Negative, Urine Bilirubin Negative, Urine Urobilinogen Normal, Ur Leukocyte Esterase Negative, Urine RBC None seen, Urine WBC None seen, Ur Epithelial Cells None seen, Urine Bacteria None seen, Urine Culture Comments No culture indicated 08/24/19 01:30: Urine Opiates Screen Negative, Barbiturate Screen Negative, Ur Phencyclidine Scrn Negative, Urine Amphetamine Negative, U Benzodiazepines Scrn Positive H, Urine Cocaine Screen Negative, Urine Marijuana (THC) Negative 08/24/19 06:28: WBC 9.6 D, RBC 5.47, Hgb 16.8, Hct 49.9, MCV 91.2, MCH 30.7, MCHC 33.7, RDW 14.6 H, Plt Count 285, MPV 8.4, Immature Gran % (Auto) 0.60 H, Immature Gran # (Auto) 0.06 H, Neutrophils % 54.3, Lymphocytes % 35.8, Monocytes % 7.5, Eosinophils % 1.6, Basophils % 0.2, Nucleated RBC % 0.0, Neutrophils # 5.2, Lymphocytes # 3.44, Monocytes # 0.7, Eosinophils # 0.2, Absolute Basophils 0.0 08/24/19 06:28: Sodium 132, Plasma Sodium 132, Potassium 4.2, Chloride 97, Carbon Dioxide 32.4, Anion Gap 6.8, BUN 13, Creatinine 1.04, Est GFR (Non-Af Amer) 100 D, BUN/Creatinine Ratio 12.5, Random Glucose 91, Calcium 8.8, Calcium Adj for Albumin 8.9, Total Bilirubin 1.0, AST 29, ALT 34, Alkaline Phosphatase 96, Total Protein 7.2, Albumin 3.5 Discharge Location: Home Disposition: Against medical advice Condition: Stable Face to Face Encounter completed per [facility] Guidelines: No Discharge Activity: Activity as tolerated Discharge Diet: General/regular food Additional Patient Instructions (free text): In instructed to follow-up with his PCP within the next 2 weeks but I doubt that will happen. Complete Home Medications List: Complete Home Medication List: Cyclobenzaprine HCl [Flexeril] 10 mg PO TID PRN 05/05/19 Gabapentin [Neurontin] 300 mg PO TID 05/05/19 Gabapentin [Neurontin] 600 mg PO TID 05/05/19 Zolpidem Tartrate [Ambien] 10 mg PO HS 05/05/19 oxyCODONE HCL/ACETAMINOPHEN [Percocet 5 MG/325 MG] 2 tab PO Q6H PRN 05/05/19 Doxepin HCl [Sinequan] 10 mg PO HS 08/23/19 Lisinopril/Hydrochlorothiazide [Lisinopril-Hctz 20-12.5 mg Tab] 20 mg PO DAILY 08/23/19 Pantoprazole Sodium 40 mg PO DAILY 08/23/19
== END 2019-08-24 07:00 | disposition left against medical advice (07) ==
LOC: ER 16:21 → MS 16:21
PROVIDERS: ADMIT Family Medicine; ATTEND Family Medicine
DX: Z53.29 Procedure and treatment not carried out because of patient's decision for other reasons; I10 Essential (primary) hypertension; E87.1 Hypo-osmolality and hyponatremia; T67.5XXA Heat exhaustion, unspecified, initial encounter; N17.9 Acute kidney failure, unspecified; R94.31 Abnormal electrocardiogram [ECG] [EKG]; F17.210 Nicotine dependence, cigarettes, uncomplicated; E86.0 Dehydration; X32.XXXA Exposure to sunlight, initial encounter; R10.13 Epigastric pain; Y93.H3 Activity, building and construction
CPT/HCPCS: 36415; 71020; 71046; 80048; 80053; 80307; 81001; 82150; 83690; 83735; 84484; 85025; 85610; 85730; 93005; 96361; 96374; 96375; 99283; 99285; G0378; J2405